=== PATIENT | female | born 1970 | race Hispanic/Latino ===

== ENCOUNTER 2017-06-24 15:22 | Outpatient (CLI) | payer BC ==
--- NOTE | 2017-06-24 16:28 | Mammography Report ---
Screening mammogram: The patient had reduction surgery. Routine views compared to prior exam in April 2015. Architectural distortion is noted bilaterally consistent with prior surgery. It is a lipoma in the superior right breast. [place] aggregates of calcifications scattered throughout both breasts. No suspicious calcifications. The findings are not otherwise remarkable and there is no significant change compared to prior exam. CAD used. Impression: Stable breast pattern. Recommendation: Annual mammogram followup. BI-RADS CATEGORY: 2 = Benign ACR BI-RADS MAMMOGRAPHIC CODES: 0 = Needs additional imaging evaluation; 1 = Negative; 2 = Benign; 3 = Probably benign; 4 = Suspicious; 5 = Malignant; 6 = Known biopsy-proven malignancy COMMENT: 1. Dense breast tissue, i.e., adenosis, fibrocystic changes, etc., may obscure an underlying neoplasm. 2. Approximately 10% of cancers are not detected with mammography. 3. A negative mammography report should not delay biopsy if a clinically suspicious mass is present.
== END 2017-06-24 15:23 | disposition home or self-care (01) ==
LOC: SPVWC 15:22
PROVIDERS: ATTEND Obstetrics & Gynecology
DX: Z12.31 Encounter for screening mammogram for malignant neoplasm of breast (principal)
CPT/HCPCS: 77067; G0202